=== PATIENT | male | born 1960 | race Caucasian/White ===

== ENCOUNTER 2018-03-25 10:26 | Inpatient (IN) | payer OTHER ==
[2018-03-19 15:39] LABS: BASOPHILS % (AUTO) 0.5 % (0-1); EOSINOPHILS # (AUTO) 0.2 X10'3 (0-0.9); EOSINOPHILS % (AUTO) 3.8 % (0-6); LYMPHOCYTES # (AUTO) 1.7 X10'3 (1.1-4.8); MEAN CORPUSCULAR HEMOGLOBIN 29.9 PG (27.0-31.0); MEAN CORPUSCULAR HGB CONC 34.3 % (33.0-36.5); MEAN PLATELET VOLUME 8.1 FL (7.4-10.4); MONOCYTES # (AUTO) 0.6 X10'3 (0-0.9); MONOCYTES % (AUTO) 10.1 % (2-12); NEUTROPHILS # (AUTO) 3.6 X10'3 (1.8-7.7); NEUTROPHILS % (AUTO) 57.6 % (42-75); PRE OP HEMATOCRIT 42.3 % (42.0-52.0); PRE OP HEMOGLOBIN 14.5 g/dL (14.0-17.9); PRE OP PLATELET COUNT 260 X10'3 (140-440); RED BLOOD COUNT 4.86 X10'6 (4.70-6.10); RED CELL DISTRIBUTION WIDTH 12.5 % (11.5-14.5)
[2018-03-19 15:50] LABS: PRE OP PROTIME 10.1 SECONDS (9.0-12.0)
[2018-03-19 15:54] LABS: ALBUMIN 4.3 G/DL (3.4-5.0); ALBUMIN/GLOBULIN RATIO 1.2 (1.1-1.5); ALKALINE PHOSPHATASE 63 IU/L (46-116); BLOOD UREA NITROGEN 18 MG/DL (7-18); BUN/CREATININE RATIO 19.4 (5.4-32.0); CALCIUM 9.4 MG/DL (8.5-10.1); CHLORIDE 105 MMOL/L (99-107); CREATININE 0.93 MG/DL (0.60-1.10); PRE OP ALT 65 U/L (30-65); PRE OP ANION GAP 9 (8-16); PRE OP AST 26 U/L (10-37); PRE OP BILIRUB, TOTAL 0.3 MG/DL (0.0-1.0); PRE OP GLUCOSE 101 MG/DL (70-104); PRE OP POTASSIUM 3.9 MMOL/L (3.4-5.1); PRE OP SODIUM 144 MMOL/L (135-145); TOTAL CARBON DIOXIDE 30.2 MMOL/L (24-32); eGFR 84 ML/MIN
[~2018-03-25] VITALS: Ht 185.4 cm; Wt 114.4 kg
[2018-03-25] VITALS (19 sets, daily range): BP systolic 106–159; BP diastolic 55–93
[~2018-03-25 10:26] MED LIST: ASCO500T8 PO; ASPI-611 PO; ATOR20TA PO; BIFLEX PO; CETI-194 PO; CHOL100046 PO; IBUP-24 PO; LISI-600 PO; MULT1TAB74 PO; OMEG500C3 PO; OMEP40CA37 PO; acetaminophen 325mg tablet PO ONE; ceFAZolin inj. 3,000 MG in normal saline 100ml IV soln 100 ML IV ONE; famotidine 20mg tablet PO ONE; gabapentin 300mg capsule PO ONE; oxyCODONE SR 10mg (sust. release) tab PO ONE; ringers solution, lacted 1,000 ML IV SCH; tranexamic acid inj. 1,000 MG in normal saline 100ml IV soln 90 ML IV ONE; vancomycin inj 1,500 MG in normal saline 300ml IV soln IV ONE
[2018-03-25] MEDS ORDERED: ketorolac trometh. 30mg/ml inj. ONE (10:39)
[2018-03-25] MEDS ORDERED: ROPIVAcaine 0.5% (5mg/ml) 30ml vial ONE ×2 (10:40→14:44)
[2018-03-25] MEDS ORDERED: morphine 10mg/ml inj. ONE (10:40)
[2018-03-25] MEDS ORDERED: vancomycin 1,000mg inj ONE (10:40)
[2018-03-25] MEDS ORDERED: ceFAZolin 1000mg inj ONE (10:40)
[2018-03-25] MEDS ORDERED: LIDOcaine 1% (10mg/ml) 2ml vial ONE (11:29)
[2018-03-25] MEDS ORDERED: ringers solution, lacted 1,000 ML IV SCH (11:36)
[2018-03-25] MEDS ORDERED: meperidine/PF 25mg/ml syringe IV PRN ×3 (11:40)
[2018-03-25] MEDS ORDERED: morphine 4 MG/ML inj SYRINge IV PRN ×2 (11:40)
[2018-03-25] MEDS ORDERED: ondansetron/PF 4mg/2ml inj IV PRN ×2 (11:40→15:05)
[2018-03-25] MEDS ORDERED: proCHLORperazine 10 MG/2 ml inj IV PRN (11:40)
[2018-03-25] MEDS ORDERED: MIDAZolam 1mg/ml 10ml vial ONE (12:26)
[2018-03-25] MEDS ORDERED: fentaNYL/PF 50MCG/1 ML 2ML syringe ONE (12:27)
[2018-03-25] MEDS ORDERED: morphine sulfate /PF 0.5 MG/ML 10mL ampul ONE (12:28)
[2018-03-25] MEDS ORDERED: Thrombin (Bovine) 5,000 unit vial TP ONE (13:25)
[2018-03-25] MEDS ORDERED: LIDOcaine 1%/PF (10mg/ml) 5ml vial ONE (14:44)
[2018-03-25] MEDS ORDERED: propofol inj 20 ML IV ONE ×2 (14:44→15:31)
[2018-03-25] MEDS ORDERED: naloxone 2mg/2ml inj 2 MG in normal saline 500ml IV soln 500 ML IV PRN (15:03)
[2018-03-25] MEDS ORDERED: diphenhydrAMINE 50 mg/ml inj IV PRN (15:05)
[2018-03-25] MEDS ORDERED: acetaminophen 325mg tablet PO PRN (15:40)
[2018-03-25] MEDS ORDERED: magnesium hydroxide 30ml (MOM) UD suspension PO PRN (15:40)
[2018-03-25] MEDS ORDERED: bisacodyl 10mg suppository rectal RC PRN (15:40)
[2018-03-25] MEDS ORDERED: HYDROmorphone inj. 0.5 MG/0.5 ML DISP.SYRIN IV PRN ×2 (15:40)
[2018-03-25] MEDS ORDERED: diphenhydrAMINE 25mg capsule PO PRN (15:40)
[2018-03-25] MEDS ORDERED: ceFAZolin 1GM/D5W- ADD-VANTAGE 50 ML IV SCH (16:00)
[2018-03-25] MEDS ORDERED: TRANEXAMIC ACID IV ONE ×2 (19:00→19:35)
[2018-03-25] MEDS ORDERED: NORMAL SALINE IV ONE ×2 (19:00→19:35)
[2018-03-25] MEDS: ceFAZolin 1GM/D5W- ADD-VANTAGE 50 ML IV SCH ×2 (19:34→23:53)
[2018-03-25] MEDS: potassium cl 20mEq in 1/2 NS 1,000 ML IV SCH ×2 (19:34→23:37)
[2018-03-25] MEDS: acetaminophen 325mg tablet PO SCH (19:35)
[2018-03-25] MEDS: sennosides 8.6mg tablet PO SCH (19:35)
[2018-03-25] MEDS: ondansetron/PF 4mg/2ml inj IV PRN (19:38)
[2018-03-25] MEDS ORDERED: vancomycin/NS 1 GM ADD-VANTAGE 250 ML IV SCH (20:00)
[2018-03-25] MEDS: gabapentin 300mg capsule PO SCH (20:02)
[2018-03-26] VITALS (7 sets, daily range): BP systolic 92–141; BP diastolic 50–66
[2018-03-26] MEDS: diphenhydrAMINE 25mg capsule PO PRN ×3 (01:25→19:34)
[2018-03-26] MEDS: acetaminophen 325mg tablet PO SCH ×4 (01:25→19:34)
[2018-03-26] MEDS: ondansetron/PF 4mg/2ml inj IV PRN ×2 (03:39→09:49)
[2018-03-26] MEDS ORDERED: ondansetron/PF 4mg/2ml inj IM ONE (04:10)
[2018-03-26] MEDS ORDERED: ondansetron/PF 4mg/2ml inj IV ONE (04:25)
[2018-03-26 06:10] LABS: BASOPHILS % (AUTO) 0 % (0-1); EOSINOPHILS % (AUTO) 0 % (0-6); HEMATOCRIT 34.4 % (42.0-52.0); HEMOGLOBIN 11.6 g/dl (14.0-17.9); LYMPHOCYTES # (AUTO) 0.3 X10'3 (1.1-4.8); LYMPHOCYTES % (AUTO) 4.3 % (21-51); MEAN CORPUSCULAR HEMOGLOBIN 29.4 PG (27.0-31.0); MEAN CORPUSCULAR HGB CONC 33.9 % (33.0-36.5); MEAN PLATELET VOLUME 7.7 FL (7.4-10.4); MONOCYTES # (AUTO) 0.5 X10'3 (0-0.9); MONOCYTES % (AUTO) 5.8 % (2-12); NEUTROPHILS # (AUTO) 7.3 X10'3 (1.8-7.7); NEUTROPHILS % (AUTO) 89.9 % (42-75); PLATELET COUNT 195 X10'3 (140-440); RED BLOOD COUNT 3.95 X10'6 (4.70-6.10); RED CELL DISTRIBUTION WIDTH 12.8 % (11.5-14.5); WHITE BLOOD COUNT 8.1 X10'3 (4.5-11.0)
[2018-03-26] MEDS: potassium cl 20mEq in 1/2 NS 1,000 ML IV SCH ×3 (06:33→23:16)
[2018-03-26] MEDS ORDERED: scopolamine 1.5mg patch.TD72 TD ONE (06:50)
[2018-03-26] MEDS ORDERED: metoclopramide 5 mg/ml inj IV PRN (06:50)
[2018-03-26] MEDS: enoxaparin 30mg/0.3ml syringe SUBCUT SCH ×2 (07:48→19:36)
[2018-03-26] MEDS: pantoprazole 40mg Tablet.DR PO SCH (07:48)
[2018-03-26] MEDS: cetirizine 10mg tablet PO SCH (07:49)
[2018-03-26] MEDS: atorvastatin 20mg tablet PO SCH (07:49)
[2018-03-26] MEDS: lisinopril 20mg tablet PO SCH (07:49)
[2018-03-26] MEDS: gabapentin 300mg capsule PO SCH ×3 (07:49→19:34)
[2018-03-26] MEDS: vitamin D (cholecalciferol) 1,000 unit tablet PO SCH (07:50)
[2018-03-26] MEDS: [UNRECOGNIZED DRUG - REMARK] PO NR (09:14)
[2018-03-26] MEDS: oxyCODONE IR 5mg (immed. release) tablet PO PRN (18:40)
[2018-03-26] MEDS: celeCOXIB 100mg capsule PO SCH (19:34)
[2018-03-26] MEDS: sennosides 8.6mg tablet PO SCH (19:35)
[2018-03-27] MEDS: acetaminophen 325mg tablet PO SCH ×2 (02:28→08:28)
[2018-03-27] MEDS: oxyCODONE IR 5mg (immed. release) tablet PO PRN ×3 (02:29→10:58)
[2018-03-27 06:00] VITALS: BP 107/59
[2018-03-27 06:04] LABS: BASOPHILS % (AUTO) 0.4 % (0-1); EOSINOPHILS # (AUTO) 0.1 X10'3 (0-0.9); EOSINOPHILS % (AUTO) 1.4 % (0-6); HEMATOCRIT 32.3 % (42.0-52.0); LYMPHOCYTES # (AUTO) 1.1 X10'3 (1.1-4.8); LYMPHOCYTES % (AUTO) 17.5 % (21-51); MEAN CORPUSCULAR HEMOGLOBIN 30.2 PG (27.0-31.0); MEAN CORPUSCULAR VOLUME 88.9 FL (78-98); MEAN PLATELET VOLUME 8.4 FL (7.4-10.4); MONOCYTES # (AUTO) 0.6 X10'3 (0-0.9); MONOCYTES % (AUTO) 10.1 % (2-12); NEUTROPHILS # (AUTO) 4.4 X10'3 (1.8-7.7); NEUTROPHILS % (AUTO) 70.6 % (42-75); PLATELET COUNT 179 X10'3 (140-440); RED BLOOD COUNT 3.64 X10'6 (4.70-6.10); RED CELL DISTRIBUTION WIDTH 12.1 % (11.5-14.5); WHITE BLOOD COUNT 6.2 X10'3 (4.5-11.0)
[2018-03-27] MEDS ORDERED: cpm (06:28)
[2018-03-27] MEDS: potassium cl 20mEq in 1/2 NS 1,000 ML IV SCH (07:37)
[2018-03-27] MEDS: [UNRECOGNIZED DRUG - REMARK] PO NR (07:58)
[2018-03-27] MEDS: pantoprazole 40mg Tablet.DR PO SCH (08:26)
[2018-03-27] MEDS: vitamin D (cholecalciferol) 1,000 unit tablet PO SCH (08:26)
[2018-03-27] MEDS: lisinopril 20mg tablet PO SCH (08:26)
[2018-03-27] MEDS: celeCOXIB 100mg capsule PO SCH (08:26)
[2018-03-27] MEDS: atorvastatin 20mg tablet PO SCH (08:26)
[2018-03-27] MEDS: enoxaparin 30mg/0.3ml syringe SUBCUT SCH (08:26)
[2018-03-27] MEDS: cetirizine 10mg tablet PO SCH (08:27)
[2018-03-27] MEDS: gabapentin 300mg capsule PO SCH (08:27)
[2018-03-27 10:00] VITALS: BP 125/74
[2018-03-27] MEDS ORDERED: acetaminophen 325mg tablet PO PRN (15:40)
== END 2018-03-27 11:42 | disposition home or self-care (01) | DRG 470 ==
LOC: PAS IN 10:26 → EDSTATUS 10:30 → ORTHO 4S 17:55
PROVIDERS: ADMIT Orthopaedic Surgery; ATTEND Orthopaedic Surgery
PROC: 3E0T3BZ Introduction of Anesthetic Agent into Peripheral Nerves and Plexi, Percutaneous Approach (ICD-10-PCS; 2018-03-25)
PROC: 8E0YXCZ Robotic Assisted Procedure of Lower Extremity (ICD-10-PCS; 2018-03-25)
PROC: 0SRC069 Replacement of Right Knee Joint with Oxidized Zirconium on Polyethylene Synthetic Substitute, Cemented, Open Approach (ICD-10-PCS; principal; 2018-03-25 12:20)
DX: M17.11 Unilateral primary osteoarthritis, right knee (principal); D62 Acute posthemorrhagic anemia; R11.2 Nausea with vomiting, unspecified; E78.5 Hyperlipidemia, unspecified; I10 Essential (primary) hypertension; K21.9 Gastro-esophageal reflux disease without esophagitis; E66.9 Obesity, unspecified; Z68.33 Body mass index [BMI] 33.0-33.9, adult; Z79.899 Other long term (current) drug therapy; Z79.82 Long term (current) use of aspirin
CPT/HCPCS: 0232T; Z7506; 36415; 80053; 85025; 85610; 85730; 87070; 93005; 97110; 97116; 97161; 97530; A6455; A7000; C1713; C1758; C1776; J0690; J1200; J1650; J1885; J2001; J2250; J2270; J2274; J2405; J2704; J2765; J2795; J3010; J3370; J3490; J7030; J7120; Q0163